=== PATIENT | male | born 1950 | race Caucasian/White ===

== ENCOUNTER → 2022-01-05 | Outpatient (CLI) | payer MEDICARE, OTHER ==
[~2022-01-05] MED LIST: ALEVE 220MG220 MG PO; ASPIRIN 81M81 MG/TA2 PO; OSCAL 500 TAB500 MG PO; PRINIVIL20 MG PO; VITAMIN D 400400 IU PO; [UNRECOGNIZED DRUG - REMARK]
== END ==
LOC: COL.RAD 12:29
DX: M25.561 Pain in right knee (principal)
CPT/HCPCS: J3301; Q9967

== ENCOUNTER → 2022-01-30 | Outpatient (CLI) | payer MEDICARE, OTHER | LOC: COL.RAD 08:40 | DX: M17.0 Bilateral primary osteoarthritis of knee (principal) | CPT/HCPCS: J3301; Q9967 ==